=== PATIENT | female | born 1985 | race African-American/Black ===

== ENCOUNTER 2016-09-23 13:21 | Emergency (ER) | payer MEDICAID ==
[~2016-09-23] VITALS: Ht 160 cm; Wt 126.0 kg
[~2016-09-23 13:21] MED LIST: FERR324T4 PO
[2016-09-23 13:26] VITALS: BP 151/107; PULSE 88; RESP 18; TEMP 98.6; O2SAT 99
--- NOTE | 2016-09-23 13:31 | PD ---
HPI Chief Complaint: Foreign Body Time Seen by Provider: 13:31 Travel History International Travel<30 days: No Contact w/Intl Traveler<30days: No Traveled to known affect area: No History of Present Illness HPI 31 year old female presents to the ED for evaluation of right ear discomfort. The patient states that she slept at a friend's house last night and thinks there might be an insect in the right ear. She endorses "clogged" sensation. She denies fever, chills, pain, discharge. She states that she used a Qtip on the ear this morning with no improvement of symptoms. PFSH Past Medical History Anemia: Yes Arthritis: No Autoimmune Disease: No Blood Disorders: No Cancer: No Cardiovascular Problems: No Chemotherapy: No Diabetes: No Diminished Hearing: No Endocrine: No Glaucoma: No Genitourinary: No Immune Disorder: No Musculoskeletal: No Neurologic: Yes Psychiatric: No Reproductive: No Respiratory: No Immunizations Current: Yes Radiation Therapy: No Seizures: Yes (2 EPISODE DURING 1ST 2003; PT DENIES ANY MORE TO DATE) Sickle Cell Disease: No Thyroid Disease: No ?: : 4 Para: 2 Miscarriage: 1 : 1 Past Surgical History Abdominal Surgery: Yes () AICD: No Arteriovenous Shunt: No Cardiac Surgery: No Section: Yes (X 2) Ear Surgery: No Endocrine Surgery: No Eye Surgery: No Genitourinary Surgery: No Gynecologic Surgery: Yes (C- SECTIONS X 2) Insulin Pump: No Joint Replacement: No Oral Surgery: No Pacemaker: No Thoracic Surgery: No Other Surgery: Yes Social History Alcohol Use: Yes (OCCASIONAL) Tobacco Use: Yes (OCCASIONAL) Substance Use: No Allergies-Medications (Allergen,Severity, Reaction): Coded Allergies: No Known Allergies (Verified , 09/23/16) Reported Meds & Prescriptions Reported Meds & Active Scripts Active Ferrous Sulfate 325 Mg Tab 325 Mg PO TID Review of Systems Except as stated in HPI: all other systems reviewed are Neg Physical Exam Narrative GENERAL: Well-nourished, well-developed obese black female in no acute distress. SKIN: Warm and dry. HEAD: Normocephalic. Atraumatic. EYES: No scleral icterus. No injection or drainage. PERRLA. EOMI. ENT: Pearly chaparro tympanic membrane on the left. Large cerumen impaction obscuring the tympanic membrane on the right. Nasal mucosa is moist. Oropharynx without erythema, edema or exudate. NECK: Supple, trachea midline. No JVD or lymphadenopathy. CARDIOVASCULAR: Regular rate and rhythm without murmurs, gallops, or rubs. No carotid bruits. 2+ DP and radial pulses bilaterally. RESPIRATORY: Breath sounds clear and equal bilaterally. No accessory muscle use. GASTROINTESTINAL: Abdomen soft, non-tender, nondistended. + Bowel sounds MUSCULOSKELETAL: No cyanosis, or edema. Full, active range of motion. Strength 5/5. Neurovascularly intact. BACK: Nontender without obvious deformity. No CVA tenderness. Data Data Last Documented VS Vital Signs Date Time Temp Pulse Resp B/P Pulse Ox O2 Delivery O2 Flow Rate FiO2 09/23/16 13:26 98.6 88 18 151/107 99 MDM Medical Decision Making Medical Screen Exam Complete: Yes Emergency Medical Condition: Yes Differential Diagnosis Foreign body versus cerumen impaction versus otitis externa versus other Narrative Course 31 year old female presents to the ED for evaluation of right ear discomfort. The patient states that she slept at a friend's house last night and thinks there might be an insect in the right ear. She endorses "clogged" sensation. She denies fever, chills, pain, discharge. Vitals reviewed. Physical exam reveals a large cerumen impaction in the right ear that obscures the tympanic membrane. Ear irrigation was performed. Pearly chaparro tympanic membrane mild irritation of the external canal noted post-procedurally. Patient is instructed to avoid putting anything in the ear, guard the ear from water, take [id number] medications as needed for pain, follow-up with primary care. She indicated understanding of the instructions and agrees to the plan of care. She is stable and discharged home. Procedures Procedure Narrative Right ear irrigation: The external canal was irrigated with a 50-50 mix of hydrogen peroxide and lukewarm water. A large cerumen impaction was cleared from the external canal. The patient tolerated the procedure well. Diagnosis Primary Impression: Hearing loss of right ear due to cerumen impaction Additional Impression: Right ear impacted cerumen Referrals: Ear / Nose / Throat Specialist Patient Instructions: Cerumen Impaction (ED), General Instructions Additional Instructions: Do not insert anything into the ears. Protect the affected ear from water for the next few days. Follow-up with the primary care provider or the nuclear medical technologist. Return to the ED for any urgent or emergent medical condition. Med/Other Pt SpecificInfo: Prescription(s) given Disposition: 01 DISCHARGE HOME Condition: Stable Yamini Hooks Sep 23, 2016 13:31
== END 2016-09-23 14:32 | disposition home or self-care (01) ==
LOC: PHEFT 13:21
DX: H61.21 Impacted cerumen, right ear (principal); D64.9 Anemia, unspecified; Z72.0 Tobacco use
CPT/HCPCS: 99282